=== PATIENT | female | born 1995 | race Caucasian/White ===

== ENCOUNTER 2017-02-28 05:57 | Emergency (ER) | payer MEDICAID ==
[~2017-02-28] VITALS: Ht 157.5 cm; Wt 96.1 kg
[~2017-02-28 05:57] MED LIST: ACET-790 PO; ANTIINFLAMMATORY; AZIT250T5 PO; AZIT250T81 PO; DIAZ5TAB PO; DICY20TA33 PO; HYDR-2651 GT; IBP200T PO; IBUP-15 PO; LORA0.5T PO; MEDR150V IM; MELO7.5T PO; METH4TAB27 PO; MMT17NA; NAPR220C11 PO; NAPR220T76 PO; NAPR550T PO; NF-MEDROXA IM; NITR100C3 PO; OMEP20CA6 PO; OMEP20TA33 PO; ONDN4T PO; PNV11TAB PO; PREN1TAB39 PO; SERT50TA2 PO; SULF1TAB34 PO; TRM50T PO; [UNRECOGNIZED DRUG - CODE] PO
[2017-02-28 06:38] VITALS: BP 107/67
== END 2017-02-28 06:45 | disposition home or self-care (01) ==
LOC: ED 06:00
DX: S20.211A Contusion of right front wall of thorax, initial encounter (principal); W22.8XXA Striking against or struck by other objects, initial encounter; Y93.89 Activity, other specified; Y92.511 Restaurant or cafe as the place of occurrence of the external cause; Y99.0 Civilian activity done for income or pay; Z3A.18 18 weeks gestation of pregnancy
CPT/HCPCS: 99282; 99283

== ENCOUNTER → 2017-03-14 | Outpatient (CLI) | payer MEDICAID ==
--- NOTE | 2017-03-14 14:19 | Diagnostic Imaging Report ---
INDICATION: Anatomical survey. TECHNIQUE: Multiple real-time grayscale images were obtained over the gravid uterus. COMPARISON: None. FINDINGS: Maternal cervix is almost 5 cm in length and appears closed. The placenta is posterior. There is no evidence for previa. There is a single live intrauterine gestation currently breech in positioning with a heart rate of 136 beats per minute. The visualized anatomy is unremarkable with no anomalies identified. Measurements today correspond with a 19 weeks 4 days . Estimated date of delivery is 08/04/2017. IMPRESSION: Single live intrauterine gestation currently measuring 19 weeks 4 days with no gross abnormalities identified. Dictated by: Dictated on workstation # [id number]
== END ==
LOC: RAD 09:09
PROVIDERS: ATTEND Family Medicine
DX: Z36 Encounter for antenatal screening of mother (principal)
CPT/HCPCS: 76805